=== PATIENT | male | born 1940 | race Two or more races ===

== ENCOUNTER → 2022-04-16 | Outpatient (CLI) | payer MEDICARE ==
--- NOTE | 2022-04-21 15:17 | PE ---
EXAMINATION TYPE: PET CT fusion skull to thigh DATE OF EXAM: 04/16/2022 CLINICAL INDICATION:Male, 81 years old with history of C61 Prostate CA; TECHNIQUE: Following the intravenous administration of 5.4 mCi of Ga-68 Illuccix (PSMA), , whole fransico dy images are performed from the skull base to the midthigh. Images are reviewed on the computer in the coronal, axial, and sagittal planes. Reconstructed rotating images are created on independent [employer] and reviewed on the computer. A non-contrast CT is performed in conjunction with the PET scan. Glucose level NA mg/dL COMPARISON: CT None, PET/CT None, FINDINGS: Mediastinal SUV mean is 0.9. Hepatic parenchyma SUV mean is 5.3. SKULL BASE AND NECK: No suspicious FDG activity. Physiologic uptake is seen within the salivary glan ds. CHEST, MEDIASTINUM, AND HILAR REGION: No suspicious FDG activity. ABDOMEN AND PELVIS: Focus of radiotracer uptake within the prostate 4.5 OSSEOUS STRUCTURES: No suspicious FDG activity. OTHER CT: Atherosclerosis of the arterial vasculature. Mild cardiomegaly. Left atrial appendage occlu yulisa device noted. Aortic valve leaflet calcifications. Trace bilateral pleural effusions. Atrophic k idneys bilaterally. Moderate stool burden seen throughout the colon. IMPRESSION: 1. Radiotracer activity within the left prostate mid gland. 2. No evidence for abnormal radiotracer uptake outside the prostate gland.
== END | disposition home or self-care (01) ==
LOC: RADPETMAIN 11:05
PROVIDERS: ATTEND General Practice
DX: C61 Malignant neoplasm of prostate (principal); R97.21 Rising PSA following treatment for malignant neoplasm of prostate
CPT/HCPCS: 78815; A9596